=== PATIENT | male | born 1970 | race African-American/Black ===

== ENCOUNTER 2016-09-18 20:05 | Emergency (ER) | payer MEDICAID, MEDICARE ==
[~2016-09-18] VITALS: Ht 175.3 cm; Wt 86.0 kg
[2016-09-18 20:12] VITALS: BP 138/90
== END 2016-09-19 01:54 | disposition home or self-care (01) ==
LOC: ER 20:20
DX: B01.9 Varicella without complication (principal); L03.90 Cellulitis, unspecified; F17.200 Nicotine dependence, unspecified, uncomplicated; F12.10 Cannabis abuse, uncomplicated
CPT/HCPCS: 99283